=== PATIENT | male | born 1975 | race Caucasian/White ===

== ENCOUNTER 2018-10-08 02:55 | Emergency (ER) | payer SELFPAY ==
[2018-10-08] MEDS ORDERED: ACETAMINOPHEN 500 MG TAB ONE ×2 (03:16→03:19)
[2018-10-08] MEDS ORDERED: IBUPROFEN 400 MG TAB ONE (03:16)
[2018-10-08] MEDS ORDERED: IBUPROFEN 200 MG TAB PO ONE (03:17)
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
--- NOTE | 2018-10-08 08:15 | RAD REPORT ---
EXAM DESCRIPTION: Gunjan Alarcon (2 Views)10/08/2018 3:29 am CLINICAL HISTORY: Chest pain COMPARISON: None FINDINGS: The lungs appear clear of acute infiltrate. The heart is normal size IMPRESSION: No acute abnormalities displayed
== END 2018-10-08 04:55 | disposition home or self-care (01) ==
LOC: ER 02:55
DX: M25.512 Pain in left shoulder (principal); V53.5XXA Driver of pick-up truck or van injured in collision with car, pick-up truck or van in traffic accident, initial encounter; F17.210 Nicotine dependence, cigarettes, uncomplicated
CPT/HCPCS: 71046; 99284